=== PATIENT | male | born 2000 | race Two or more races ===

== ENCOUNTER 2023-10-24 09:51 | Emergency (ER) | payer SELFPAY ==
[2023-10-24 09:56] VITALS: BP 136/63; PULSE 77; TEMP 36.8; O2SAT 99
[2023-10-24 09:57] VITALS: BP 136/63; O2SAT 98
[2023-10-24 10:00] VITALS: O2SAT 100
[2023-10-24 10:20] VITALS: PULSE 81; O2SAT 99
--- NOTE | 2023-10-24 10:27 | CT_ITS ---
The [address] [address] Patient Name: AIME CHAVEZ MRN: [facility]:[id number] date: 2000 Sex: M Assigned Patient Location: ED.MAIN Current Patient Location: ER Accession/Order Number: [id number] Exam Date: 10/24/2023 11:08 Report Date: 10/24/2023 11:56 At the request of: NORIS ACOSTA Procedure: CT head/brain wo con EXAM: CT head/brain wo con HISTORY: numbness, legs COMPARISON: None. TECHNIQUE: Axial noncontrast CT imaging of the brain was performed without intravenous contrast. This CT exam was performed using one or more of the following dose reduction techniques: Automated exposure control, adjustment of the MA and/or kV according to patient size, or use of iterative reconstruction technique. FINDINGS: Calvarium/skull base: No evidence of acute fracture or destructive lesion. Paranasal sinuses: No air fluid levels. Brain: No acute intracranial hemorrhage. No acute large vascular territory infarct. No mass lesion or mass effect. No hydrocephalus. CT/CT head/brain wo con IMPRESSION: No acute intracranial process. Electronically authenticated by: SUDHA SWANSON Date: 10/24/2023 11:56
--- NOTE | 2023-10-24 10:27 | ECG_ITS ---
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
--- NOTE | 2023-10-24 10:28 | CT_ITS ---
The [address] [address] Patient Name: AIME CHAVEZ MRN: [id number] date: 2000 Sex: M Assigned Patient Location: ER Current Patient Location: ER Accession/Order Number: [id number] Exam Date: 10/24/2023 11:08 Report Date: 10/24/2023 12:10 At the request of: NORIS ACOSTA Procedure: CT angio chest EXAMINATION: CT angio chest HISTORY: dissection rule out, chest pain COMPARISON: No relevant comparison available. TECHNIQUE: Multi-planar CT images were created with IV contrast. Axial, Coronal, and Sagittal images. Dose reduction techniques were achieved by using automated exposure control and/or adjustment of mA and/or kV according to patient size and/or use of iterative reconstruction technique. 3-D reconstruction was performed on a separate workstation. FINDINGS: VASCULATURE: No pulmonary embolism or abnormal opacity. LUNGS: No visible pulmonary disease. PLEURA: No mass, effusion, or pneumothorax. OCHOA: No mass or adenopathy. MEDIASTINUM: No mass or adenopathy. CARDIAC: No enlargement, pericardial effusion, or pericardial thickening. AORTA: No aneurysm or dissection. CHEST WALL: No mass or axillary adenopathy. BONES: No bone lesion or fracture. LIMITED ABDOMEN: No suspicious findings. Limited images of the upper abdomen. OTHER: Negative. CT/CT angio chest IMPRESSION: 1. No aortic dissection or aneurysm. 2. No pulmonary embolism, pneumothorax, acute infiltrates, or suspicious findings to account for patient's symptoms. Electronically authenticated by: LYRIC LIND Date: 10/24/2023 12:10
--- NOTE | 2023-10-24 10:28 | CT_ITS ---
The [address] [address] Patient Name: AIME CHAVEZ MRN: [facility]:[id number] date: 2000 Sex: M Assigned Patient Location: ER Current Patient Location: ER Accession/Order Number: [id number] Exam Date: 10/24/2023 11:08 Report Date: 10/24/2023 11:51 At the request of: NORIS ACOSTA Procedure: CT lumbar spine wo con EXAM TYPE: CT lumbar spine wo con EXAM DATE AND TIME: 10/24/2023 11:08 AM EDT INDICATION: 22 years old Male with left leg numbness COMPARISON: None TECHNIQUE: CT imaging of the lumbar spine was obtained without contrast. Dose reduction techniques were achieved by using automated exposure control and/or adjustment of mA and/or kV according to patient size and/or use of iterative reconstruction technique. FINDINGS: 5 nonrib-bearing lumbar vertebrae. Normal lumbar lordosis without listhesis. Vertebral body heights are maintained. No acute fracture identified. No CT evidence of focal large central disc herniation or severe spinal canal stenosis. No CT evidence of neural foraminal stenosis. The visualized bony pelvis appears congruent. Limited evaluation of the abdominopelvic viscera is unremarkable. CT/CT lumbar spine wo con IMPRESSION: Unremarkable lumbar spine CT scan. Electronically authenticated by: SHANTEL FISHMAN Date: 10/24/2023 11:51
[2023-10-24 10:40] VITALS: PULSE 74; O2SAT 98
[2023-10-24 10:41] LABS: Basophils Percent Auto 0.4 % (0.2-2.0); Eosinophils Absolute Auto 0.1 10^3/uL (0.0-0.7); Eosinophils Percent Auto 0.7 % (0.9-7.0); Hematocrit 42.9 % (42.0-54.0); Hemoglobin 14.9 g/dL (14.0-18.0); Immature Granulocytes Abs Auto 0.02 10^3/uL (0.00-0.03); Immature Granulocytes Pct Auto 0.2 % (0.0-0.5); Lymphocytes Absolute Auto 1.6 10^3/uL (1.2-3.8); Lymphocytes Percent Auto 19.4 % (20.5-60.0); Mean Corpuscular HGB Conc 34.7 g/dL (29.9-35.2); Mean Corpuscular Hemoglobin 30.7 pg (25.9-34.0); Mean Corpuscular Volume 88.3 fL (80.0-94.0); Monocytes Absolute Auto 0.3 10^3/uL (0.3-0.8); Monocytes Percent Auto 3.3 % (1.7-12.0); Neutrophils Absolute Auto 6.4 10^3/uL (1.4-6.5); Platelet Count 134 10^3/uL (150-450); Red Blood Count 4.86 10^6/uL (4.70-6.10); Red Cell Distribution Width 12.6 % (11.0-15.0); White Blood Count 8.4 10^3/uL (4.0-11.0)
[2023-10-24] MEDS: 0.9 % SODIUM CHLORIDE 1,000 ML 999 ML IV (10:41)
[2023-10-24 11:02] LABS: Anion Gap 15.4; BUN Creatinine Ratio 15.7; Calcium 9.7 mg/dL (8.5-10.1); Carbon Dioxide 26.5 mmol/L (21.0-32.0); Chloride 101 mmol/L (98-107); Estimated GFR (African America >60 (>=60); Estimated GFR (Non-African Ame >60 (>=60); Glucose 144 mg/dL (74-106); Potassium 3.9 mmol/L (3.5-5.1); Sodium 139 mmol/L (136-145); Troponin I High Sensitivity 4.7 pg/mL (4.0-76.1)
[2023-10-24 12:43] VITALS: BP 124/88; PULSE 86; O2SAT 98
--- NOTE | 2023-10-24 12:53 | ED_ITS ---
HPI - Chest Pain General Chief Complaint: Chest Pain Stated Complaint: CHEST PAIN, NUMBNESS IN LEFT LEG Time Seen by Provider: 10/24/23 10:02 Source: patient Mode of arrival: walk-in Limitations: no limitations History of Present Illness HPI narrative: 22-year-old male to the emergency department chief complaint of chest pain. 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 He reports that stress has become urine [place] over the last few days. Reports that he began having episodes of chest pain, palpitations and feeling of panic at work today during 1 of these episodes today he believes he lost feeling in ability to use his left leg. He had to leave work. Related Data Home Medications ?Medication ?Instructions ?Recorded ?Confirmed No Known Home Medications 10/24/23 10/24/23 Allergies Allergy/AdvReac Type Severity Reaction Status Date / Time No Known Drug Allergies Allergy Verified 10/24/23 09:56 Review of Systems ROS Status of ROS 10 or more systems reviewed and unremark able except as noted in history and below Exam Narrative Exam Narrative: VITALS: I have reviewed the triage vital signs. GENERAL: Anxious appearing adult male NEURO: Alert and oriented. Moves all extremities. Face is symmetric and exp ressive. Subjective sensation change of the left leg. EYES: PERRL. No scleral icterus or conjunctival injection. No discharge. HENT: Normocephalic, atraumatic. Hearing is grossly intact. Nares grossly patent and without discharge. Mucous membranes moist. NECK: No JVD. Patient moves neck without restriction. CARDIO: Rhythm regular. Normal rate. No murmur, rub, or gallop. Pulses equal bilaterally in the upper and lower extremity. No lower extremity edema. PULM: Lungs clear to auscultation in all larios. No wheezes, rales, or rhonchi. No conversational dyspnea. No splinting, stridor, or accessory muscle use. GI/: Abdomen is soft and non-tender. Normoactive bowel sounds. EXTREMITIES: Symmetric muscle bulk. No joint swelling. No clubbing, cyanosis, or deformity. SKIN: Warm and dry. Normal turgor. No rash or lesions appreciated. 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: Obeys both correctly = 0 Best gaze: Normal = 0 Visual field testing: No visual field loss = 0 Facial paresis: Normal symmetric movement = 0 Motor function left arm: Normal = 0 Motor function right arm: Normal = 0 Motor function left leg: Normal = 0 Motor function right leg: Normal = 0 Limb ataxia: No ataxia = 0 Sensory: Left leg = 1 Best language: No aphasia = 0 Dysarthria: Normal articulation = 0 Extinction and inattention: Normal = 0 Total Score (severe deficit >22): 1 Constitutional Vital Signs, click to edit/add: Last Vital Signs Temp 98.2 F 10/24/23 09:56 Pulse 86 10/24/23 12:43 Resp 18 10/24/23 12:43 BP 124/88 10/24/23 12:43 Pulse Ox 98 10/24/23 12:43 O2 Del Method Room Air 10/24/23 09:56 Course Vital Signs Vital signs: Vital Signs Temperature 98.2 F 10/24/23 09:56 Pulse Rate 77 10/24/23 09:56 Respiratory Rate 18 10/24/23 09:56 Blood Pressure 136/63 10/24/23 09:56 Pulse Oximetry 99 10/24/23 09:56 Oxygen Delivery Method Room Air 10/24/23 09:56 Temperature 98.2 F 10/24/23 09:56 Pulse Rate 86 10/24/23 12:43 Respiratory Rate 18 10/24/23 12:43 Blood Pressure 124/88 10/24/23 12:43 Pulse Oximetry 98 10/24/23 12:43 Oxygen Delivery Method Room Air 10/24/23 09:56 MDM - Chest Pain MDM Narrative Medical decision making narrative: 22-year-old male to the emergency department with chief complaint of chest pain, sensation changes left lower extremity. Vital stable, the patient is afebrile. Change in sensation is subjective only left leg. He does flinch with pain. Given the chest pain and neurologic symptoms we will rule out dissection. Cardiac workup initiated. He reports he may have also had some back pain during working today. Will obtain a CT scan. Patient agrees with this plan. Fluids are ordered. CT head: Negative CTA chest: No dissection CT lumbar: Negative Lab work reviewed and noted. No major abnormalities. Troponin is very low, symptom onset greater than 4 hours ago. Low risk by heart score. Patient reexamined in the room. He reports that he feels much improved. He now appears relaxed. He reports his leg sensation change went away. His chest pain went away believes it was stress related. Do believe that this could have been a conversion disorder. Did appear to be having a panic attack when he arrived. Patient is appropriate for discharge home. Return precautions were discussed. All questions were answered. He did request a work note through Saturday so he can be off through the weekend. Patient was discharged home. Medical Records Data Attestation: I reviewed the patient's medical records. Lab Data Attestation: I reviewed the patient's lab results. Labs: Lab Results 10/24/23 Range/Units 10:00 WBC 8.4 (4.0-11.0) 10^3/uL RBC 4.86 (4.70-6.10) 10^6/uL Hgb 14.9 (14.0-18.0) g/dL Hct 42.9 (42.0-54.0) % MCV 88.3 (80.0-94.0) fL MCH 30.7 (25.9-34.0) pg MCHC 34.7 (29.9-35.2) g/dL RDW 12.6 (11.0-15.0) % Plt Count 134 L (150-450) 10^3/uL Neut % (Auto) 76.0 H (43.0-75.0) % Lymph % (Auto) 19.4 L (20.5-60.0) % [place] % (Auto) 3.3 (1.7-12.0) % Eos % (Auto) 0.7 L (0.9-7.0) % Baso % (Auto) 0.4 (0.2-2.0) % Neut # (Auto) 6.4 (1.4-6.5) 10^3/uL Lymph # (Auto) 1.6 (1.2-3.8) 10^3/uL [place] # (Auto) 0.3 (0.3-0.8) 10^3/uL Eos # (Auto) 0.1 (0.0-0.7) 10^3/uL Baso # (Auto) 0.0 (0.0-0.1) 10^3/uL Abs Immat Gran (auto) 0.02 (0.00-0.03) 10^3/uL Imm/Tot Granulo (auto) 0.2 (0.0-0.5) % Sodium 139 (136-145) mmol/L Potassium 3.9 (3.5-5.1) mmol/L Chloride 101 (98-107) mmol/L Carbon Dioxide 26.5 (21.0-32.0) mmol/L Anion Gap 15.4 BUN 17.0 (7.0-18.0) mg/dL Creatinine 1.08 (0.70-1.30) mg/dL Est GFR ( Amer) >60 (>=60) Est GFR (Non-Af Amer) >60 (>=60) BUN/Creatinine Ratio 15.7 Glucose 144 H (74-106) mg/dL Calcium 9.7 (8.5-10.1) mg/dL Troponin I High Sens 4.7 (4.0-76.1) pg/mL Imaging Data CT scan - chest: Radiologist's impression: ITS Impressions Head CT 10/24/23 10:27 IMPRESSION: No acute intracranial process. Electronically authenticated by: SUDHA SWANSON Date: 10/24/2023 11:56 Chest CTA 10/24/23 10:28 IMPRESSION: 1. No aortic dissection or aneurysm. 2. No pulmonary embolism, pneumothorax, acute infiltrates, or suspicious findings to account for patient's symptoms. Electronically authenticated by: LYRIC LIND Date: 10/24/2023 12:[address] 10/24/23 10:28 IMPRESSION: Unremarkable lumbar spine CT scan. Electronically authenticated by: SHANTEL FISHMAN Date: 10/24/2023 11:51 ECG Data Attestation: I personally reviewed and interpreted this ECG as follows: (Normal sinus rhythm. No STEMI. Normal QTc.) Heart Score History: Slightly/Non-Suspicious ECG: Normal Age: <45 years Risk Factors: No Risk Factors Troponin: <Normal Limit Total Heart Score Recommendations & Risks:: 0 Discharge Plan Discharge Stand Alone Forms: Portal Instructions Chief Complaint: Chest Pain Clinical Impression: Atypical chest pain, Stress reaction, Paresthesia Patient Disposition: Home, Self-Care Time of Disposition Decision: 12:35 Condition: Good Mode of Transportation: Private Vehicle Prescriptions / Home Meds: No Action No Known Home Medications Print Language: Malay Instructions: Stress (ED), Chest Wall Pain (ED) Additional Instructions: Call the office of your primary care doctor to arrange for follow-up within the above-stated timeframe. Your ED visit was focused on your acute issue and does not replace primary care. You should review your labs, imaging, and diagnoses from this ED visit with your primary care physician. There may be non-emergent/ incidental findings that need further evaluation. You should review your vital signs including blood pressure with your PCP. If you were prescribed medications you should discuss possible side-effects and drug interactions with your pharmacist. Call 911 or go to the nearest Emergency Department if you develop any new or worsening symptoms. Seek immediate medical attention if you develop: worsening chest pain, new chest pain, nausea, vomiting, weakness, numbness, tingling, excessive sweating, shortness of breath, difficulty breathing, loss of motion in your arms or legs, or any new or worsening symptoms. Referrals: Rl San MD [Physician] - 1 week Physician,Non-StaffMD [Primary Care Provider] - 1 week Discharge Date/Time: 10/24/23 12:44
== END 2023-10-24 12:44 | disposition home or self-care (01) ==
PROVIDERS: Emergency Provider Student in an Organized Health Care Education/Training Program
DX: R07.89 Other chest pain (principal); R20.2 Paresthesia of skin; F43.9 Reaction to severe stress, unspecified
CPT/HCPCS: 36415; 70450; 71275; 72131; 80048; 84484; 85025; 93005; 99285; Q9967